=== PATIENT | male | born 1995 | race Caucasian/White ===

== ENCOUNTER 2021-01-30 14:59 | Emergency (ER) | payer SELFPAY ==
[2021-01-30 15:02] VITALS: BP 126/84; PULSE 73; RESP 20; TEMP 35.9; O2SAT 99; BMI 34.0
--- NOTE | 2021-01-30 16:16 | ED.VIS.GEN ---
History of Present Illness Chief Complaint: General Illness Informant: Patient Onset: Days Context: Sudden Onset Timing: Intermittent Narrative: Patient evaluated for nausea vomiting diarrhea. He states his symptoms started 2 days ago suddenly and were more severe. Patient continues to mild nausea. He was sent home from work and was told that he needs to get checked out by a doctor. Patient recently relocated to this area. Patient's not had any vomiting today. His diarrhea is resolved. He denies any black or blood in his stool or vomit. He denies any abdominal pain. He denies any chest pain, shortness of breath or difficulty breathing. He also notes that he has a history of type 2 diabetes and left his medicine in his old town. He does not currently have it. He was on Metformin does not remember the dose but thinks it is 500 mg twice a day. No other complaints at this time. Past Medical History - Allergies and Home Meds Allergies/Adverse Reactions: Allergies amoxicillin Allergy (Verified 01/30/21 15:00) Salvatore Primary Care Physician: Care Physician,No Primary [Primary Care Provider] - Past Medical History: - - Diabetes mellitus Surgical History: no surgical history Lives: Friends Smoking Status: Current every day smoker Review of Systems General: Denies: Chills, Fever, Sweats Eyes: Denies: Visual changes - bilaterally, Diplopia ENT: Denies: Rhinorrhea, Sore throat Cardiovascular: Denies: Chest pain, Palpitations Respiratory: Denies: Dyspnea, Cough, Dyspnea on exertion Gastrointestinal: Reports: Nausea, Vomiting, Diarrhea. Denies: Abdominal pain, Melena, Hematochezia Genitourinary: Denies: Dysuria, Hematuria, Frequency Musculoskeletal: Denies: Back pain, Extremity Pain Skin: Denies: Rash, Wounds Neurological: Denies: Headache, Weakness, Numbness Physical Exam Vital Signs/Narrative: Vital Signs Temp Pulse Resp BP Pulse Ox 01/30/21 15:02 96.7 F L 73 20 H 126/84 H 99 Inital Vital Signs reviewed: Yes General: Well nourished, Well developed, Obese, No Acute Distress Head: Normocephalic, Atraumatic Eyes: Perrl, EOMI ENT: Moist mucous membranes, No rhinorrhea, TM's clear. Negative for: Dry mucous membranes Neck: Supple, Nontender Cardiovascular: Regular rate, Regular rhythm, No murmurs Respiratory: No distress, CTA bilaterally, Chest nontender Abdomen: Soft, Nontender, Nondistended, Normal bowel sounds. Negative for: Guarding, Rebound tenderness Back: Nontender, Normal Inspection Extremities: Nontender, No edema Skin: Normal color, No rash Neurological: Alert, Oriented x3, Cranial nerves II-XII grossly intact, Normal Strength, Normal Sensation Psychological: Normal affect, Normal Mood Diagnostic/Tx/Re-eval - Medical Decision Making Patient is evaluated for an episode of vomiting and diarrhea 2 days ago. Patient still has some mild nausea. He is not thrown up today. He thinks he might of eaten something bad as it occurred after eating. Patient is well-appearing. He has normal vital signs. Not appear dehydrated and I do not suspect any acute intra-abdominal pathology. He is not have any respiratory symptoms I have a lower suspicion for Covid. Patient denies any exposure to anyone with Covid. Patient be treated symptomatically with a prescription for Zofran. He will be given refill for his Metformin 500 mg twice a day. Blood sugar is elevated by do not SPECT DKA or HH NK. He is instructed to start taking it once a day to prevent the associated diarrhea if his titrated up too fast. Patient is counseled on signs and symptoms requiring return to the emergency room. Patient verbalizes agreement and understand this plan. Patient discharged home in stable and improved condition. ED Disposition - Plan for ED Patient: Disposition: Home or Assisted Living Diagnosis: Nausea vomiting and diarrhea, Medication refill, History of diabetes mellitus Instructions: ED Vomiting and Diarrhea ... Prescriptions: Metformin HCl 500 mg PO BID #60 tablet Transmission Status: Pending to [facility] Ondansetron [Zofran Odt] 4 mg PO Q8H PRN PRN #10 tablet PRN Reason: Nausea Transmission Status: Pending to [facility] Referrals: Carol Ann Garcia [NON-STAFF] -
[2021-01-30 16:21] LABS: Bedside Glucose 228 mg/dL (70-110)
== END 2021-01-30 16:54 | disposition home or self-care (01) ==
PROVIDERS: Emergency Provider Emergency Medicine
DX: R11.2 Nausea with vomiting, unspecified (principal); R19.7 Diarrhea, unspecified; Z76.0 Encounter for issue of repeat prescription; E11.9 Type 2 diabetes mellitus without complications; E66.9 Obesity, unspecified; Z79.84 Long term (current) use of oral hypoglycemic drugs; F17.200 Nicotine dependence, unspecified, uncomplicated
CPT/HCPCS: 82962; 99282

== ENCOUNTER 2021-02-24 00:32 | Emergency (ER) | payer SELFPAY ==
[2021-02-24 00:33] VITALS: BP 169/87; PULSE 83; RESP 16; TEMP 36.2; O2SAT 100; BMI 34.8
[2021-02-24] MEDS: Ondansetron ODT 4 MG Tablet 8 MG PO (00:48)
--- NOTE | 2021-02-24 01:09 | ED.VISSUMM ---
- ER Visit Summary Date of Service: 02/24/21 Chief Complaint: Nausea and vomiting History of Present Illness: The patient is a 26 M who has nausea and vomiting. Started 2 hours ago at work. He states he had 2 or 3 episodes. He is denying any abdominal pain with this. He has had diarrhea for 2 to 3 days prior to this. It is been looser stools without any blood. No urinary symptoms. He denies any fevers. He states currently he only feels mild nausea at this time. His work sent him here because he vomited at work. Physical Examination: Vital signs reviewed. HEENT exam unremarkable. Heart is regular rate and rhythm without murmurs. Lungs are clear to auscultation. Abdomen is soft and nontender. Extremities reveal no edema. Skin exam normal. Neurologic exam normal. Test Results: Blood glucose is 225 Emergency Department Course and Treatment: Patient was given oral Zofran. Upon reevaluation he is symptomatically improved. Patient will be discharged home. He does have Zofran to take. Treatment Plan: [] Disposition: Discharge Impression: Nausea This note was generated with [employer] dictation software. It may contain incorrect words, spelling, and punctuation that were not noted in review of the chart prior to signing ED Disposition - Plan for ED Patient: Disposition: Home or Assisted Living Instructions: ED Vomiting (Adult) Referrals: Care Physician,No Primary [Primary Care Provider] -
[2021-02-24 01:14] VITALS: PULSE 91; RESP 18
[2021-02-26 07:26] LABS: Bedside Glucose 225 mg/dL (70-110)
== END 2021-02-24 01:15 | disposition home or self-care (01) ==
PROVIDERS: Emergency Provider Emergency Medicine
DX: R11.2 Nausea with vomiting, unspecified (principal); R19.7 Diarrhea, unspecified; E11.9 Type 2 diabetes mellitus without complications; Z79.84 Long term (current) use of oral hypoglycemic drugs; Z72.0 Tobacco use
CPT/HCPCS: 82962; 99283

== ENCOUNTER 2021-04-25 05:17 | Emergency (ER) | payer SELFPAY ==
[2021-04-25 05:18] VITALS: BP 164/96; PULSE 83; RESP 16; TEMP 36; O2SAT 99; BMI 33.4
--- NOTE | 2021-04-25 05:39 | EX.ED.DYSGE1 ---
HPI History of Present Illness Chief Complaint: Hyperglycemia Informant: patient Narrative Narrative: 26-year-old male presents the emergency department out of concern for hyperglycemia. Patient has a history of type 2 diabetes. He states that he has been struggling to make ends meet and has been spacing his Metformin out. There are several little days that we will go by where he does not have his Metformin. He tells me that when he was originally diagnosed he had severe leg weakness and paresthesias. He states that tonight at work he began to have some leg weakness and paresthesias again and became concerned that he is becoming hyperglycemic. He does not have a current local doctor. He states that he is worried about the long-term complication of diabetes but does not know how he can afford the proper care. [facility] Medical History Diabetes Home Medications metformin 500 mg PO BID #60 tab 04/25/21 [Rx Last Taken Unknown] Allergy/AdvReac Type Severity Reaction Status Date / Time amoxicillin Allergy Hives Verified 04/25/21 05:21 Social History (Updated 04/25/21 @ 05:[address] Sincere Gentile DO) Smoking Status: Current every day smoker tobacco type: cigarettes substance use type: does not use ROS ROS ED Constitutional Constitutional ED: Denies chills or weight loss Eyes Eyes: Denies change in vision or diplopia ENT ENT ED: Denies ear pain, rhinorrhea or sore throat Cardiovascular Cardiovascular: Denies chest pain, orthopnea, palpitations or racing heartbeat Respiratory/Chest Respiratory/Chest: Denies cough, dyspnea or orthopnea Gastrointestinal Gastrointestinal: Denies abdominal pain, diarrhea, nausea or vomiting Genitourinary Genitourinary ED: Denies dysuria, hematuria or urinary frequency Musculoskeletal Musculoskeletal: Denies arthralgias or myalgias Integumentary Denies abscess or rash Neurologic Neurologic: Reports paresthesias and weakness; Denies headache(s) Psychiatric Psychiatric: Denies anxiety, depression, suicidal ideation or suicidal thoughts Endocrine Endocrinology: Denies polydipsia, polyphagia or polyuria Allergic/Immunologic Allergic/Immunologic ED: Denies mouth swelling, tongue swelling or urticaria EXAM Physical Exam Const Vital Signs: 04/25/21 05:18 Temperature 96.8 F L Temperature Source Temporal Pulse Rate 83 Respiratory Rate 16 Blood Pressure 164/96 H Blood Pressure Mean 118 Pulse Ox 99 Oxygen Delivery Method Room Air Positive well nourished and well developed General Appearance ED: well developed HEENT Reports normocephalic, head/scalp atraumatic and moist mucous membranes Eyes PERRL and EOMs intact bilaterally Neck no lymphadenopathy, supple and no JVD Resp normal respiratory effort and clear to auscultation bilaterally Cardio regular rate, regular rhythm and no murmurs GI normal to inspection, nondistended, normoactive bowel sounds and non-tender Palpation: soft Back/Spine no CVA tenderness and normal ROM Extremity normal to inspection General Extremety ED: Negative for edema General Extremity: Negative for edema Neuro oriented x3 and CN's II-XII intact bilaterally Sensorium / Orientation: alert Motor Exam: strength 5/5 throughout Psych mental status grossly normal Mood & Affect: Negative for depressed or tearful Skin no rashes or lesions noted and no wounds MDM MDM MDM Narrative Medical decision making narrative: Blood sugar here was 198. Advised the patient that he would be a good candidate for the start of in clinic. I will give him a couple good Rx cards and will write for him to have Metformin. He is aware of how to take his Metformin. He should check his blood sugar regularly until he gets well-established on the Metformin. He does have an device at home. Discharge Plan Triage Chief Complaint: Hyperglycemia ED Provider: Sincere Gentile Dx/Rx/DC Orders Clinical Impression: Diabetes mellitus, Diabetic neuropathy Instructions: Long-Term Complications of Diabetes, Type 2 Diabetes Prescriptions: New metformin 500 mg tablet 500 mg PO BID Qty: 60 RF: 1 Primary Care Provider: Care Physician,No Primary Referrals: Carol Ann Garcia [NON-STAFF] - As soon as possible Care Physician,No Primary [Primary Care Provider] - Disposition Disposition: Home, Self Care
[2021-04-25 07:56] LABS: Bedside Glucose 198 mg/dL (70-110)
== END 2021-04-25 05:53 | disposition home or self-care (01) ==
LOC: ED 05:47
PROVIDERS: Emergency Provider Emergency Medicine
DX: E11.65 Type 2 diabetes mellitus with hyperglycemia (principal); E11.40 Type 2 diabetes mellitus with diabetic neuropathy, unspecified; Z79.84 Long term (current) use of oral hypoglycemic drugs; F17.210 Nicotine dependence, cigarettes, uncomplicated
CPT/HCPCS: 82962; 99282

== ENCOUNTER 2021-06-13 00:50 | Emergency (ER) | payer SELFPAY ==
[2021-06-13 00:51] VITALS: BP 135/79; PULSE 89; RESP 18; TEMP 36.4; O2SAT 100; BMI 34.1
--- NOTE | 2021-06-13 00:57 | NURSING ---
STATES HE HAS NOT TAKEN METFORMIN FOR ALMOST A WEEK.
[2021-06-13 01:16] LABS: Bedside Glucose 168 mg/dL (70-110)
[2021-06-13] MEDS: Ondansetron 4 MG/2 ML Vial IV (02:01)
[2021-06-13] MEDS: 0.9% Normal Saline 1,000 ML 1000 ML IV (02:01)
[2021-06-13 02:13] LABS: Basophil# 0.06 X10^3/uL; Basophil% 0.7 % (0-1); Eosinophil# 0.28 X10^3/uL; Eosinophils% 3.5 % (0-5); Hematocrit 44.4 % (40-54); Hemoglobin 14.8 g/dL (13.0-16.5); Lymphocyte % 37.4 % (19-41); Mean Corp Hgb Conc 33.3 g/dL (32-36); Mean Corpuscular Hgb 30.1 pg (27.0-32.0); Mean Corpuscular Volume 90.4 fL (80-94); Mean Platelet Vol. 10.7 fl (6.2-12.0); Monocyte% 8.7 % (0-10); NRBC Flagged by Analyzer 0 % (0-5); Neutrophil # 3.95 X10^3/uL (2.7-7.7); Neutrophil % 49.3 % (47-70); Platelet Count 305 K/mm3 (150-450); RBC Distribution Width CV 12.4 % (11.6-14.6); RBC Distribution Width SD 41.2 fl (35.1-43.9); Red Blood Count 4.91 M/mm3 (4.6-6.2)
[2021-06-13 02:34] LABS: AST(SGOT) 12 U/L (15-37); Alanine Aminotransfer ALT/SGPT 37 U/L (16-61); Albumin, Serum 3.6 g/dL (3.2-5.0); Alkaline Phosphatase 96 U/L (45-117); Anion Gap 6 (5-15); BUN 18 mg/dL (7-18); BUN/Creat Ratio 18.1 RATIO (10-20); Calcium,Total 8.8 mg/dL (8.5-10.1); Chloride 107 mmol/L (98-107); EST Glomerular Filtration Rate 98 mL/min (>60); Est Glom Filt Rate - Afr Amer 118 mL/min (>60); Estimated Creatinine Clearance 121.32 ml/min; Globulin 3.2 g/dL (2.2-4.2); Glucose 145 mg/dL (74-106); Potassium 3.5 mmol/L (3.5-5.1); Protein, Total 6.8 g/dL (6.4-8.2); Sodium Level 140 mmol/L (136-145)
--- NOTE | 2021-06-13 03:04 | EDS_ITS ---
HPI History of Present Illness Chief Complaint: Nausea/Vomiting/Diarrhea Informant: patient Onset/Context/Timing Onset: Weeks Context: Gradual Onset Current Severity: Mild Maximum Severity: Moderate Narrative Narrative: Patient presents secondary multiple complaints. He states he had been sleeping well for a while. He is not sure if he may have insomnia. He does report having increased caffeine yesterday but otherwise has greatly cut down on caffeine intake. He states several years ago his mental health doctor gave him some sleeping pills but they did not really help. He has not talked to his family physician about this. He also complains of diarrhea for the past 1 week and nausea vomiting for the last hour. He denies any blood in the stool or vomitus. No fever or chills. Patient is diabetic but states he does not regularly check his blood sugars. [facility] Medical History Diabetes Murmur Home Medications metformin 500 mg PO BID #60 tab 04/25/21 [Rx Last Taken Unknown] ondansetron HCl [Zofran] 4 mg PO Q8H PRN #10 tab 06/13/21 [Rx Last Taken Unknown] Allergy/AdvReac Type Severity Reaction Status Date / Time amoxicillin Allergy Hives Verified 04/25/21 05:21 Social History Smoking Status: Current every day smoker tobacco type: cigarettes substance use type: does not use ROS ROS ED Constitutional Constitutional ED: Denies chills or fever(s) Eyes Eyes: Denies change in vision ENT ENT ED: Denies sore throat Cardiovascular Cardiovascular: Denies chest pain Respiratory/Chest Respiratory/Chest: Denies cough or dyspnea Gastrointestinal Gastrointestinal: Reports diarrhea, nausea and vomiting; Denies abdominal pain Genitourinary Genitourinary ED: Denies dysuria Musculoskeletal Musculoskeletal: Denies back pain Integumentary Denies rash Neurologic Neurologic: Denies headache(s) or weakness Psychiatric Psychiatric: Denies anxiety or depression Allergic/Immunologic Allergic/Immunologic ED: Denies urticaria EXAM Physical Exam Const Vital Signs: 06/13/21 00:51 Temperature 97.5 F L Temperature Source Temporal Pulse Rate 89 Respiratory Rate 18 Blood Pressure 135/79 H Blood Pressure Mean 97 Pulse Ox 100 Oxygen Delivery Method Room Air Positive well nourished and well developed General Appearance ED: well developed HEENT Reports normocephalic and head/scalp atraumatic Eyes PERRL and EOMs intact bilaterally Neck supple Chest Wall inspection of chest normal and palpation of chest normal Resp normal respiratory effort and clear to auscultation bilaterally Cardio regular rate and regular rhythm GI normal to inspection, nondistended, normoactive bowel sounds and non-tender Palpation: soft Extremity normal to inspection Neuro oriented x3 and no sensory deficits noted Sensorium / Orientation: alert Motor Exam: strength 5/5 throughout Psych mental status grossly normal Skin no rashes or lesions noted MDM MDM MDM Narrative Medical decision making narrative: Patient is given Zofran and IV fluids. Lab work obtained. Lab Data Labs: Laboratory Results - last 24 hr 06/13/21 06/13/21 06/13/21 01:08 02:00 02:00 WBC 8.0 RBC 4.91 Hgb 14.8 Hct 44.4 MCV 90.4 MCH 30.1 MCHC 33.3 RDW Std Deviation 41.2 RDW Coeff of Sienna 12.4 Plt Count 305 MPV 10.7 Immature Gran % (Auto) 0.400 Neut % (Auto) 49.3 Lymph % (Auto) 37.4 Keith % (Auto) 8.7 Eos % (Auto) 3.5 Baso % (Auto) 0.7 Absolute Neuts (auto) 4.0 Absolute Lymphs (auto) 3.00 Nucleated RBC % 0 Sodium 140 Potassium 3.5 Chloride 107 Carbon Dioxide 27.0 Anion Gap 6 BUN 18 Creatinine 1.00 Estim Creat Clear Calc 121.32 Est GFR (MDRD) Af Amer 118 Est GFR (MDRD) Non-Af 98 BUN/Creatinine Ratio 18.1 Glucose 145 H Calcium 8.8 Total Bilirubin 0.20 Direct Bilirubin 0.10 AST 12 L ALT 37 Alkaline Phosphatase 96 Total Protein 6.8 Albumin 3.6 Globulin 3.2 POC Glucose 168 H Treatment and Re-Evaluation Comments:: On repeat evaluation patient sleeping comfortably has to be awoken. Test results discussed with the patient. Labs are unremarkable. Prescription for Zofran tablets to be sent to the pharmacy for him. I did encourage him to follow-up with his PCP regarding his sleeping issues as he may require a sleep study. Discharge Plan Triage Chief Complaint: Nausea/Vomiting/Diarrhea ED Provider: Vianney Carr Dx/Rx/DC Orders Clinical Impression: Vomiting Instructions: ED Vomiting (Adult) Prescriptions: New ondansetron HCl [Zofran] 4 mg tablet 4 mg PO Q8H PRN (Reason: nausea and vomiting) Qty: 10 RF: 0 No Action metformin 500 mg tablet 500 mg PO BID Qty: 60 RF: 1 Primary Care Provider: Carol Ann Garcia Referrals: Carol Ann Garcia [Primary Care Provider] - 1 Week Disposition Disposition: Home, Self Care
== END 2021-06-13 03:17 | disposition home or self-care (01) ==
PROVIDERS: Emergency Provider Emergency Medicine
DX: R11.2 Nausea with vomiting, unspecified (principal); R19.7 Diarrhea, unspecified; E11.9 Type 2 diabetes mellitus without complications; Z79.84 Long term (current) use of oral hypoglycemic drugs; F17.210 Nicotine dependence, cigarettes, uncomplicated
CPT/HCPCS: 80048; 80076; 82962; 85025; 96361; 96374; 99283; J7030; A4216; J2405